=== PATIENT | female | born 1965 | race Caucasian/White ===

== ENCOUNTER 2017-01-23 13:21 | Observation (INO) ==
[2017-01-23] MEDS ORDERED: SALINE FLUSH 10ml SYRINGE IVF PRN (13:44)
[2017-01-23] MEDS ORDERED: ASPIRIN 81 MG CHEWABLE TABLET PO ONE (13:44)
--- NOTE | 2017-01-23 13:44 | Emergency Department Report ---
Chest Pain HPI - General Chief Complaint: Chest Pain Stated Complaint: chest pain Time Seen by Provider: 01/23/17 13:44 Source: patient Mode of arrival: ambulatory Limitations: no limitations - History of Present Illness HPI narrative: Patient is a 51-year-old female presents [facility] for evaluation of exertional dyspnea, shortness of air chest tightness. The symptoms have been waxing and waning with exertion for the past week, however today feet patient felt significantly worse and short of air while ambulating. Patient states she does not feel well although does not specifically have any nausea or diaphoresis at this time. Patient decided present today to the ER for evaluation MD complaint: chest pain Occurred At: home Onset (ago): day(s) Duration: intermittent Onset: during exertion Pain location: left chest Severity: moderate - Related Data Home Medications Medication Instructions Recorded Confirmed Pantoprazole Sodium 40 mg PO DAILY #0 05/15/13 01/23/17 Triamterene/Hctz 37.5/25 Tab 1 tab PO DAILY #0 05/15/13 01/23/17 [MAXZIDE-25 eqv] oxybutynin chloride 5 mg tablet 5 mg PO DAILY 30 Days #30 12/16/16 01/23/17 Azelastine 0.1% Nasal [place] 1 spray EA NOSTRIL BID 01/23/17 01/23/17 [Astelin 0.1% Nasal [place]] topiramate 50 mg tablet 100 mg PO DAILY 90 Days #180 tab 02/13/17 Previous Rx's Medication Instructions Recorded montelukast 10 mg tablet 10 mg PO DAILY #90 tab 12/12/16 duloxetine 30 mg capsule,delayed 90 mg PO DAILY #90 cap 12/19/16 release Aspirin *EC* [Ecotrin] 81 mg PO DAILY tablet 01/24/17 Nebivolol [Bystolic] 5 mg PO DAILY #30 tablet 01/24/17 Ultram (Tramadol) 50 mg tablet 50 mg PO Q6H PRN #30 tab 02/13/17 Zantac (Ranitidine) 150 mg tablet 150 mg PO BID 90 Days #180 tab 03/01/17 sucralfate 1 gram tablet 1 g PO QID 28 Days #112 tab 03/02/17 phentermine 37.5 mg tablet 37.5 mg PO DAILY #30 tab 03/03/17 Celebrex (Celecoxib) 200 mg capsule 200 mg PO BID #60 cap 03/08/17 colestipol 1 gram tablet 1 g PO BID #60 tab 03/08/17 metoclopramide 10 mg tablet 10 mg PO HS #90 tab 03/10/17 Allergies Allergy/AdvReac Type Severity Reaction Status Date / Time FLAQUITO Inhibitors AdvReac Unknown Verified 02/13/17 13:14 ethinyl estradiol AdvReac Unknown Verified 02/13/17 13:14 [From Ortho-[facility] (21)] norethindrone AdvReac Unknown Verified 02/13/17 13:14 [From Ortho-Novum (21)] sibutramine [From Meridia] AdvReac Unknown Verified 02/13/17 13:14 Review of Systems Constitutional: Denies: fever, chills, weakness ENT: Denies: throat pain, dental pain Cardiovascular: Reports: chest pain, dyspnea on exertion Respiratory: Denies: cough, dyspnea, wheezes Gastrointestinal: Denies: abdominal pain, nausea, vomiting Musculoskeletal: Denies: back pain, joint swelling Integumentary: Denies: alopecia Neurological: Denies: headache, weakness, numbness Psychiatric: Denies: anxiety, depression PFSH Patient Stated Medical History Migraine Yes Hypertension Yes Asthma Yes Sleep Apnea Yes: boardline Gastroesophageal Reflux Yes Disease Ulcer Yes Hx Urinary Tract Infection Yes: frequent UTI Osteoarthritis Yes Depression Yes Clinic Medical History (Last Reviewed 12/20/16 @ 09:17 by DESTIN Blevins) Rheumatoid arthritis (Acute Medical) GERD (gastroesophageal reflux disease) (Chronic Medical) Insomnia (Acute Medical) Depression (Chronic Medical) HTN (hypertension) (Chronic Medical) Environmental and seasonal allergies (Acute Medical) Obesity (Chronic Medical) Recommending gastric bypass surgery. This patient suffers from multiple medical conditions directly related to her morbid obesity. Her and her agree to gastric bypass options. She will continue phentermine to complete a 6 month weight loss program. Most weight loss surgical Center for require a monitored six-month weight loss program which she definitely has completed. Patient will follow-up with Yoselin Patino in 2mos. Sooner if needed. The appropriate weight loss centers were given to patient to contact for appointments. Multinodular goiter (Acute Medical) Hyperthyroidism (Acute Medical) Fibromyalgia (Acute Medical) Family History: Family History (Last Reviewed 06/20/17 @ 09:17 by DESTIN Blevins) Father Aneurysm Myocardial infarction Mother Alive and well - Social History Smoking status: Former smoker Substance use type: does not use Alcohol intake frequency: does not drink Physical Exam - Limitations Limitations: no limitations - General General appearance: alert, in no apparent distress - ENT ENT exam: Present: normal oropharynx, mucous membranes moist, TM's normal bilaterally - Neck Neck exam: Present: trachea midline - Chest Chest inspection: Present: symmetric chest wall rise. Absent: tenderness - Respiratory Respiratory exam: Present: normal lung sounds bilaterally. Absent: respiratory distress, wheezes, stridor - Cardiovascular Cardiovascular exam: Present: regular rate, normal rhythm, normal heart sounds - Abdominal Exam Abdominal exam: Present: soft. Absent: distention - Back Exam Back exam: Present: full ROM. Absent: tenderness, CVA tenderness (R), CVA tenderness (L), muscle spasm, paraspinal tenderness - Skin Skin exam: Present: warm, dry - Neurological Exam Neurological exam: Present: alert, oriented X3 - Psychiatric Psychiatric exam: Present: normal affect, normal mood Course Vital Signs Temperature 98.1 F 01/23/17 13:25 Pulse Rate 74 01/23/17 13:25 Respiratory Rate 24 01/23/17 13:25 Blood Pressure 165/99 H 01/23/17 13:25 Pulse Oximetry 96 01/23/17 13:25 Temperature 97.1 F 01/24/17 07:58 Pulse Rate 73 01/24/17 07:58 Respiratory Rate 16 01/24/17 07:58 Blood Pressure 137/85 01/24/17 07:58 Pulse Oximetry 97 01/24/17 07:58 Chest Pain - Differential Diagnosis Likely: fracture of rib, pneumothorax, stable angina, unstable angina pectoris, atypical chest pain, st elevation myocardial infarction, costochondritis, chest pain, biliary colic - Medical Records Data Attestation: I reviewed the patient's medical records. - Lab Data Attestation: I reviewed the patient's lab results. Result diagrams: 01/24/17 10:15 01/24/17 10:16 Lab Results 01/23/17 01/23/17 01/23/17 Range/Units 13:59 13:59 13:59 WBC 6.6 (4.5-11.0) T/MM3 RBC 4.92 (4.00-5.20) M/MM3 Hgb 14.8 (12-16) GM/DL Hct 46.3 H (36-46) % MCV 94.1 (80-100) UM3 MCH 30.1 (26-34) UUG MCHC 32.0 (31-37) GM/DL RDW Std Deviation 46.5 (36.9-50.2) FL Plt Count 239 (130-400) T/MM3 MPV 11.2 (9.4-12.4) UM3 Immature Gran % (Auto) 0.0 (0.0-0.5) % Neut % (Auto) 59.8 (33-66) % Lymph % (Auto) 29.9 (23-45) % [place] % (Auto) 6.8 (0-9.0) % Eos % (Auto) 2.9 (0-4) % Baso % (Auto) 0.6 (0-2) % Neut # 4.0 (1.8-7.7) T/MM3 Lymph # 2.0 (1-4.8) T/MM3 [place] # 0.5 (0-0.8) T/MM3 Eos # 0.2 (0-0.5) T/MM3 Baso # 0.0 (0-0.2) T/MM3 Abs Immat Gran (auto) 0.00 (0.00-0.03) T/MM3 D-Dimer < 150 (0-230) NG/ML Turbidity < 20 (0-20) Sodium 144 (134-144) MEQ/L Potassium 3.7 (3.6-5) MEQ/L Chloride 110 H (98-107) MEQ/L Carbon Dioxide 22 (22-30) MEQ/L Anion Gap 12 (5-15) MEQ/L BUN 16.0 (7-17) MG/DL Creatinine 1.0 (0.7-1.2) MG/DL GFR Calculation 58 BUN/Creatinine Ratio 16 (6-26) RATIO Glucose 96 (65-110) MG/DL Calculated Osmolality 278 (261-280) MOSM/KG Calcium 10.0 (8.4-10.2) MG/DL Magnesium (1.6-2.3) MG/DL Total Bilirubin 1.20 (0.20-1.30) MG/DL Icterus Index < 2 (0-7) AST 22 (14-36) U/L ALT 34 (9-52) U/L Alkaline Phosphatase 119 (38-126) U/L Troponin I < 0.012 (0-0.12) ng/ml B-Natriuretic Peptide 65.9 (0-175) pg/mL Total Protein 7.3 (6.3-8.2) G/DL Albumin 4.4 (3.5-5.0) G/DL Globulin 2.9 (2.4-3.6) G/DL Albumin/Globulin Ratio 1.5 (1.1-2.2) RATIO Triglycerides (35-135) MG/DL Cholesterol (132-199) MG/DL LDL Cholesterol, Calc (66-159) VLDL Cholesterol (0-28) MG/DL HDL Cholesterol (40-60) MG/DL Cholesterol/HDL Ratio (0-4.0) RATIO Specimen Hemolysis < 15 (0-25) 01/23/17 01/23/17 Range/Units 13:59 13:59 WBC (4.5-11.0) T/MM3 RBC (4.00-5.20) M/MM3 Hgb (12-16) GM/DL Hct (36-46) % MCV (80-100) UM3 MCH (26-34) UUG MCHC (31-37) GM/DL RDW Std Deviation (36.9-50.2) FL Plt Count (130-400) T/MM3 MPV (9.4-12.4) UM3 Immature Gran % (Auto) (0.0-0.5) % Neut % (Auto) (33-66) % Lymph % (Auto) (23-45) % [place] % (Auto) (0-9.0) % Eos % (Auto) (0-4) % Baso % (Auto) (0-2) % Neut # (1.8-7.7) T/MM3 Lymph # (1-4.8) T/MM3 [place] # (0-0.8) T/MM3 Eos # (0-0.5) T/MM3 Baso # (0-0.2) T/MM3 Abs Immat Gran (auto) (0.00-0.03) T/MM3 D-Dimer (0-230) NG/ML Turbidity (0-20) Sodium (134-144) MEQ/L Potassium (3.6-5) MEQ/L Chloride (98-107) MEQ/L Carbon Dioxide (22-30) MEQ/L Anion Gap (5-15) MEQ/L BUN (7-17) MG/DL Creatinine (0.7-1.2) MG/DL GFR Calculation BUN/Creatinine Ratio (6-26) RATIO Glucose (65-110) MG/DL Calculated Osmolality (261-280) MOSM/KG Calcium (8.4-10.2) MG/DL Magnesium 2.1 (1.6-2.3) MG/DL Total Bilirubin (0.20-1.30) MG/DL Icterus Index (0-7) AST (14-36) U/L ALT (9-52) U/L Alkaline Phosphatase (38-126) U/L Troponin I (0-0.12) ng/ml B-Natriuretic Peptide (0-175) pg/mL Total Protein (6.3-8.2) G/DL Albumin (3.5-5.0) G/DL Globulin (2.4-3.6) G/DL Albumin/Globulin Ratio (1.1-2.2) RATIO Triglycerides 113 (35-135) MG/DL Cholesterol 151 (132-199) MG/DL LDL Cholesterol, Calc 71.4 (66-159) VLDL Cholesterol 22.6 (0-28) MG/DL HDL Cholesterol 57 (40-60) MG/DL Cholesterol/HDL Ratio 2.6 (0-4.0) RATIO Specimen Hemolysis (0-25) - Radiology Data Attestation: I reviewed the patient's radiology results. Chest x-ray: No acute cardiopulmonary findings - EKG Data EKG #1 EKG attestation: Yes: I reviewed and interpreted this EKG. EKG shows normal: sinus rhythm Rate: normal Rhythm: NSR [place]/QRS: normal Interpretation: no acute changes Disposition Clinical Impression: Chest pain, rule out acute myocardial infarction Disposition: 02 To [facility] Condition: Stable Time of Disposition: 15:12 - Seen By: physician
[2017-01-23] MEDS: NITROGLYCERIN 0.4 MG SUBLINGUAL TABLET SL PRN ×2 (14:00→14:07)
--- NOTE | 2017-01-23 15:01 | XRay Report ---
Indication: chest discomfort, shortness of breath, nausea PROCEDURE: XR chest 1V: Encounter: Initial Comparison: CT chest, 07/29/2015 Findings: The lungs are clear, the heart is unenlarged, and there is no pleural fluid. No pulmonary vascular engorgement. Trachea midline. Visualized osseous element are intact and monitor leads overlie the chest. Impression: Negative for acute chest disease. .
--- NOTE | 2017-01-23 18:05 | Cardiology Consult Note ---
History of Present Illness Consult date: 01/23/17 <Shea Velázquez 01/23/17 18:04> Requesting physician: Maria Elena Molina <Shea Velázquez 01/23/17 18:04> Consult reason: chest pain <Shea Velázquez 01/23/17 18:04> Chief complaint: Chest Pain <Shea Velázquez 01/23/17 18:04> History of present illness: This is a 51-year-old morbidly obese female who presented to the ER today after CP that she states has been intermittent over the last 7-10 days. She states that it can last from a few minutes to a few hours. Describes as a "pressure" to her left mid chest, does not radiate. States that there are no exacerbating and/or relieving factors. States that area is tender to touch. Denies pain with inspiration. Denies any palpitations, diaphoresis, SOA. Also denies any nausea until today. States she developed nausea last night that was not improved this AM. She then went to work and felt more nauseated and weak and notified her PCP to make an appointment at which time the office notified her she should be evaluated in the ER. Once presenting to the ER it was noted that pt had a new RBBB and her chest pressure was relieved with SL nitro. Initial troponin was negative.Patient states only medical hx HTN, GERD, hyperthyroidism, depression and obesity for which she has been taking phentermine for qualifying weight loss program prior to weight loss surgery. States she has not taken medication in approximately 1 week. Denies any h/o CAD & that her lipid panels have always been WNL,states she takes colestipol for chronic diarrhea. Past h/o tobacco use. Patient states only family h/o CAD is her mother who is d/t CT. <Shea Velázquez 01/24/17 10:36> Review of Systems - Constitutional Constitutional: Present: fatigue, headache(s). Absent: chills <Shea Velázquez 01/23/17 18:24> - Cardiovascular Cardiovascular: Present: chest pain. Absent: palpitations, syncope, dyspnea on exertion, orthopnea <Shea Velázquez 01/23/17 18:24> - Respiratory Respiratory: Absent: cough, dyspnea, dyspnea on exertion, wheezing, pain on inspiration, chest congestion <Ecton,Shea 01/23/17 18:24> - Gastrointestinal Gastrointestinal: Present: nausea. Absent: abdominal pain, change in bowel habits, constipation, diarrhea, vomiting <Ecton,Shea 01/23/17 18:24> - Genitourinary Genitourinary: Absent: dysuria, flank pain <Ecton,Shea 01/23/17 18:24> - Musculoskeletal Musculoskeletal: Absent: joint swelling, stiffness <Ecton,Shea 01/23/17 18:24> - Integumentary/Breasts Integumentary: Absent: rash, swelling, wounds <Ecton,Shea 01/23/17 18:24> - Neurological Neurological: Absent: confusion, dizziness, radicular pain, weakness <Ecton, Shea 01/23/17 18:24> - Psychiatric Psychiatric: Absent: anxiety, panic attacks <Ecton,Shea 01/23/17 18:24> - Endocrine Endocrine: Absent: excessive sweating, palpitations <Ecton,Shea 01/23/17 18:24> - Hematologic/Lymphatic Hematologic/Lymphatic: Absent: easy bleeding, easy bruising, lymphadenopathy < Ecton,Shea 01/23/17 18:24> [facility] Patient Stated Medical History Migraine Yes Hypertension Yes Asthma Yes Sleep Apnea Yes: boardline Gastroesophageal Reflux Yes Disease Ulcer Yes Hx Urinary Tract Infection Yes: frequent UTI Osteoarthritis Yes Gonorrhea Yes Depression Yes Clinic Medical History (Last Updated 01/24/17 @ 16:01 by Leif Michelle MD) Environmental and seasonal allergies (Acute Medical) Fibromyalgia (Acute Medical) Hyperthyroidism (Acute Medical) Insomnia (Acute Medical) Multinodular goiter (Acute Medical) Rheumatoid arthritis (Acute Medical) Depression (Chronic Medical) GERD (gastroesophageal reflux disease) (Chronic Medical) HTN (hypertension) (Chronic Medical) Obesity (Chronic Medical) Recommending gastric bypass surgery. This patient suffers from multiple medical conditions directly related to her morbid obesity. Her and her agree to gastric bypass options. She will continue phentermine to complete a 6 month weight loss program. Most weight loss surgical Center for require a monitored six-month weight loss program which she definitely has completed. Patient will follow-up with Yoselin Patino in 2mos. Sooner if needed. The appropriate weight loss centers were given to patient to contact for appointments. <Leroy Caldwell - 01/26/17 12:35> Clinic Medical History (Last Updated 01/23/17 @ 15:11 by Efrain Gregory MD) Depression (Acute Medical) Continue current medications. Will increase duloxetine to 90 milligrams daily. Environmental and seasonal allergies (Acute Medical) Fibromyalgia (Acute Medical) GERD (gastroesophageal reflux disease) (Acute Medical) HTN (hypertension) (Acute Medical) Hyperthyroidism (Acute Medical) Insomnia (Acute Medical) Multinodular goiter (Acute Medical) Rheumatoid arthritis (Acute Medical) Obesity (Chronic Medical) Recommending gastric bypass surgery. This patient suffers from multiple medical conditions directly related to her morbid obesity. Her and her agree to gastric bypass options. She will continue phentermine to complete a 6 month weight loss program. Most weight loss surgical Center for require a monitored six-month weight loss program which she definitely has completed. Patient will follow-up with Yoselin Patino in 2mos. Sooner if needed. The appropriate weight loss centers were given to patient to contact for appointments. <OzzieonShea 01/23/17 18:24> Family History: Family History (Last Reviewed 12/20/16 @ 09:17 by DESTIN Blevins) Father Aneurysm Myocardial infarction Mother Alive and well <Leroy Caldwell - 01/26/17 12:35> Family History (Last Reviewed 12/20/16 @ 09:17 by DESTIN Blevins) Father Aneurysm Mother Myocardial infarction - <MelaniaShea R 01/23/17 18:24> - Social History Smoking status: Former smoker <EctonShea 01/23/17 18:04> Substance use type: does not use <EctonShea R 01/23/17 18:24> Alcohol intake: never <EctonShea 01/23/17 18:24> Alcohol intake frequency: does not drink <EctonShea R 01/23/17 18:24> Housing: house <Ecton,Shea 01/23/17 18:24> Household members: spouse <EctonShea 01/23/17 18:24> service: No <Ecton,Shea 01/23/17 18:24> Current occupational status: employed <EctonShea R - 01/23/17 18:24> Current occupational exposures/hazards: No <Shea Velázquez R - 01/23/17 18:24> Does patient use chewing tobacco?: No <Shea Velázquez R - 01/23/17 18:24> Current residence: Apartment/Private Home <Shea Velázquez R - 01/23/17 18:24> Medications Home Medications Medication Instructions Recorded Confirmed Type Pantoprazole Sodium 40 mg PO DAILY #0 05/15/13 01/23/17 History Triamterene/Hctz 37.5/25 Tab 1 tab PO DAILY #0 05/15/13 01/23/17 History [MAXZIDE-25 eqv] [id number] 1 - 2 tab PO Q6HR PRN 5 Days 12/16/16 History 50 mg-325 mg-40 mg tablet eszopiclone 1 mg tablet 1 mg PO HS 30 Days 12/16/16 01/23/17 History mometasone-formoterol HFA 200 1 puff INH DAILY 30 Days 12/16/16 01/23/17 History mcg-5 mcg/actuation aerosol inhaler oxybutynin chloride 5 mg tablet 5 mg PO DAILY 30 Days 12/16/16 01/23/17 History ranitidine 150 mg tablet 150 mg PO DAILY 90 Days 12/16/16 01/23/17 History topiramate 50 mg tablet 50 mg PO DAILY 90 Days 12/16/16 01/23/17 History Azelastine 0.1% Nasal [place] 1 spray EA NOSTRIL BID 01/23/17 01/23/17 History [Astelin 0.1% Nasal [place]] Colestipol [Colestid] 1 gm PO BID 01/23/17 01/23/17 History <Leroy Caldwell - 01/26/17 12:35> Allergies Allergy/AdvReac Type Severity Reaction Status Date / Time FLAQUITO Inhibitors AdvReac Unknown Verified 01/23/17 20:42 ethinyl estradiol AdvReac Unknown Verified 01/23/17 17:56 [From Ortho-Novum (21)] norethindrone AdvReac Unknown Verified 01/23/17 17:56 [From Ortho-Novum (21)] sibutramine [From Meridia] AdvReac Unknown Verified 01/23/17 17:56 <Leroy Caldwell - 01/26/17 12:35> Exam Vital signs: Temperature 97.1 F 01/24/17 07:58 Pulse Rate 73 01/24/17 07:58 Respiratory Rate 16 01/24/17 07:58 Blood Pressure 137/85 01/24/17 07:58 Pulse Oximetry 97 01/24/17 07:58 Oxygen Delivery Method Room Air <Leroy Caldwell - 01/26/17 12:35> Temperature 98.1 F 01/23/17 13:25 Pulse Rate 66 01/23/17 16:21 Respiratory Rate 20 01/23/17 16:21 Blood Pressure 151/63 H 01/23/17 16:21 Pulse Oximetry 98 01/23/17 16:21 Laboratory Results - last 24 hr 01/23/17 01/23/17 01/23/17 13:59 13:59 13:59 WBC 6.6 RBC 4.92 Hgb 14.8 Hct 46.3 H MCV 94.1 MCH 30.1 MCHC 32.0 RDW Std Deviation 46.5 Plt Count 239 MPV 11.2 Immature Gran % (Auto) 0.0 Neut % (Auto) 59.8 Lymph % (Auto) 29.9 [place] % (Auto) 6.8 Eos % (Auto) 2.9 Baso % (Auto) 0.6 Neut # 4.0 Lymph # 2.0 [place] # 0.5 Eos # 0.2 Baso # 0.0 Abs Immat Gran (auto) 0.00 D-Dimer < 150 Turbidity < 20 Sodium 144 Potassium 3.7 Chloride 110 H Carbon Dioxide 22 Anion Gap 12 BUN 16.0 Creatinine 1.0 GFR Calculation 58 BUN/Creatinine Ratio 16 Glucose 96 Calculated Osmolality 278 Calcium 10.0 Magnesium Total Bilirubin 1.20 Icterus Index < 2 AST 22 ALT 34 Alkaline Phosphatase 119 Troponin I < 0.012 B-Natriuretic Peptide 65.9 Total Protein 7.3 Albumin 4.4 Globulin 2.9 Albumin/Globulin Ratio 1.5 Specimen Hemolysis < 15 01/23/17 13:59 WBC RBC Hgb Hct MCV MCH MCHC RDW Std Deviation Plt Count MPV Immature Gran % (Auto) Neut % (Auto) Lymph % (Auto) [place] % (Auto) Eos % (Auto) Baso % (Auto) Neut # Lymph # [place] # Eos # Baso # Abs Immat Gran (auto) D-Dimer Turbidity Sodium Potassium Chloride Carbon Dioxide Anion Gap BUN Creatinine GFR Calculation BUN/Creatinine Ratio Glucose Calculated Osmolality Calcium Magnesium 2.1 Total Bilirubin Icterus Index AST ALT Alkaline Phosphatase Troponin I B-Natriuretic Peptide Total Protein Albumin Globulin Albumin/Globulin Ratio Specimen Hemolysis Date of Exam: 01/23/17 Ordering Provider: Efrain Gregory MD Type of Exam(s): XR chest 1V Reason for Exam(s): chest discomfort Indication: chest discomfort, shortness of breath, nausea PROCEDURE: XR chest 1V: Encounter: Initial Comparison: CT chest, 07/29/2015 Findings: The lungs are clear, the heart is unenlarged, and there is no pleural fluid. No pulmonary vascular engorgement. Trachea midline. Visualized osseous element are intact and monitor leads overlie the chest. Impression: Negative for acute chest disease. <Shea Velázquez 01/24/17 10:27> - Constitutional no acute distress, morbidly obese, cooperative <OzzieonShea 01/23/17 18:24 > - Routine HEENT Exam Head: Present: normocephalic <EctonShea 01/23/17 18:24> Eye: Present: EOMI <EctonShea 01/23/17 18:24> ENT: Present: mucous membranes moist <EctonShea 01/23/17 18:24> Nose: moist mucous membranes <EctonShea 01/23/17 18:24> - Routine Neck Exam Absent: JVD, carotid bruit, lymphadenopathy <OzzieonShea 01/23/17 18:24> - Routine Respiratory Exam Present: CTA bilaterally. Absent: dyspnea, wheezes, crackles <EctonShea 01/23/17 18:24> - Routine Cardiovascular Exam Present: RRR, no murmur. Absent: gallop, rubs, JVD <EctonShea 01/23/17 18:24> - Routine Abdominal Exam Present: soft, normoactive bowel sounds, non distended <EctonShea 18:24> - Routine Extremities Exam Present: edema, pulses intact <EctonShea 01/23/17 18:24> Comments: Trace edema to BLE. <Shea Velázquez 01/23/17 18:24> - Routine Back/Spine/Pelvis Exam Back/Spine: Present: full ROM <Shea Velázquez 01/23/17 18:24> - Routine Skin Exam Present: intact, dry, warm. Absent: wounds, rash <Shea Velázquez 01/23/17 18 :24> - Routine Neurological Exam Present: alert, oriented X3 <Shea Velázquez 01/23/17 18:24> - Routine Psychiatric Exam Present: normal affect, normal thought process, cooperative. Absent: agitated <Shea Velázquez 01/23/17 18:37> Results 01/24/17 10:15 01/24/17 10:16 <Leroy Caldwell 01/26/17 12:35> - Imaging and Cardiology EKG results: report reviewed <Shea Velázquez 01/23/17 18:24> - EKG Interpretation EKG: sinus rhythm (w/RBBB) <Shea Velázquez 01/24/17 10:04> Assessment and Plan (1) Hyperthyroidism Status: Acute (2) HTN (hypertension) Status: Chronic (3) Depression Status: Chronic (4) GERD (gastroesophageal reflux disease) Status: Chronic (5) Chest pain, rule out acute myocardial infarction Status: Resolved (6) Morbid obesity Status: Chronic <Leroy Caldwell 01/26/17 12:35> (1) Chest pain, rule out acute myocardial infarction Status: Acute reviewed current EKG, showed NSR with new RBBB. First troponin negative, will follow troponin trend. Current lab unremarkable order lipid panel , TSH & mag level. Will order ECHO. Will monitor overnight on tele and repeat EKG & lab in AM. (2) HTN (hypertension) Status: Acute Slightly elevated, patient states not norm. Will con't to monitor on home dose Maxzide.May need to add BB/CCB, pt allergy to ACEI. (3) Morbid obesity Status: Acute Patient on weight loss program with phentermine. States no dose x1week. F/u with PCP for con't. wt loss management. (4) Hyperthyroidism Status: Acute Check TSH.PCP manages. (5) Depression Problem details: Continue current medications. Will increase duloxetine to 90 milligrams daily. Status: Acute Attending managing and making changes to medications. (6) GERD (gastroesophageal reflux disease) Status: Acute Pantoprazole 40mg daily. PCP manages. <Shea Velázquez - 01/24/17 10:44> - Attestation Attestation Narrative: 01/26/17 12:35 Recommendation After examining the patient I agree with the above assessment. I am involved in the formulation of the patient's plan of care. <Leroy Caldwell - 01/26/17 12:35> Hospital Course Summary Disclaimer: The visit summary below is not to be considered part of the above Progress Note. <Leroy Caldwell - 01/26/17 12:35> The visit summary below is not to be considered part of the above Progress Note. <Shea Velázquez - 01/23/17 18:04> Addendum entered and electronically signed by Shea Velázquez APRN 01/24/17 11: 16: Please note in HPI that patient initially seen in ER by attending, who consulted cardiology after patient had CP relieved by SL nitro & noted new RBBB on EKG. Thank you for your consult .
[2017-01-23 18:08] VITALS: BMI 61.7
[2017-01-23] MEDS ORDERED: TETANUS, DIPHTHERIA, a PERTUSSIS (Tdap) 0.5ml INJECTION IM ONE (20:26)
--- NOTE | 2017-01-23 20:34 | History & Physical Report ---
History of Present Illness Date: 01/23/17 Chief complaint: chest pain HPI: Patient was seen at 7:30 PM Informant: Patient, patient's , patient's chart. Chief complaint: chest pain History of present illness: The patient is a 51-year-old white female who presents with complaints that she felt sick yesterday and has had pain in her chest for the last 7-10 days. Today it felt like a cannonball in my gut associated with nausea. She also reports she has had pain in her chest for the last 7-10 days that feels more like a pressure like something is sitting on her chest. She called her physician's office this morning when the pain started to go between her shoulder blades and radiated down her left arm and she was advised to present to the emergency department because of the risk of a cardiac event patient was at work at the time (she works at [employer] across the street). He told her boss that she needed to go to the emergency department, she reports she got dizzy and short of breath on the way to the car and when walking from the emergency department into the ED. The shortness of breath has resolved now. She says it was different from her usual asthma. In addition she reports she has felt hot and cold for the last 10 days sort of allergic menopause. She is not sure if she 's had a fever but she does feel like she's had chills and sweats. Her weight has not changed recently.She has been on phentermine for the last 6 months and has had fluctuation of her weight by 5-10 pounds. She does have a history of gastroesophageal reflux disease/reflux and reports that she has woken up in the middle of the night with "emesis" in the back of her throat causing her to cough and gag. This is unusual for her. She was admitted to the medical floor for observation. Review of Systems - Constitutional Constitutional: Present: fatigue, headache(s). Absent: chills - Cardiovascular Cardiovascular: Present: chest pain. Absent: palpitations, syncope, dyspnea on exertion, orthopnea - Respiratory Respiratory: Absent: cough, dyspnea, dyspnea on exertion, wheezing, pain on inspiration, chest congestion - Gastrointestinal Gastrointestinal: Present: nausea. Absent: abdominal pain, change in bowel habits, constipation, diarrhea, vomiting - Genitourinary Genitourinary: Absent: dysuria, flank pain - Musculoskeletal Musculoskeletal: Absent: joint swelling, stiffness - Integumentary/Breasts Integumentary: Absent: rash, swelling, wounds - Neurological Neurological: Absent: confusion, dizziness, radicular pain, weakness - Psychiatric Psychiatric: Absent: anxiety, panic attacks - Endocrine Endocrine: Absent: excessive sweating, palpitations - Hematologic/Lymphatic Hematologic/Lymphatic: Absent: easy bleeding, easy bruising, lymphadenopathy - Allergic/Immunologic Allergic/Immunologic: Review of systems: As per history of present illness HEENT: No headaches, occasional sinus problems, no sinus drainage, no visual changes, no blurred vision,, no sore throat however she reports that every day when she goes to work she loses her voice within few minutes of being there but this resolves when she goes home., Lungs: As per history of present illness she has had shortness of breath, and dyspnea on exertion, no cough, no sputum production. CV:,no palpitations, no swelling of the extremities, she denies syncope GI: Occasional nausea and diarrhea, no constipation,no blood in the stool, no dark-colored stools, no bright red blood per rectum. Last colonoscopy was about 5 years ago. : No dysuria, no hematuria, no flank pain. Musculoskeletal: No numbness or tingling in the arms or legs, no weakness. Skin: No skin rash PFSH Past medical history/surgical history: Asthma Depression treated with duloxetine Environmental and seasonal allergies Fibromyalgia Hypothyroidism Multinodular goiter Arthritis Obesity Thyroid surgery 20 years ago one fallopian tube removed at the age of 14 secondary to gonorrhea they thought she had appendicitis Carpal tunnel repair 2015 Cholecystectomy 2016 Family History: Family History (Last Reviewed 12/20/16 @ 09:17 by DESTIN Blevins) Father age 77 alive and well Brain Aneurysm Mother of a myocardial infarction at the age of 67 There is a family history of COPD Immunizations: She tries to get a yearly flu vaccine Not sure if she's had a Tdap or pneumococcal vaccine - Social History Smoking status: Former smoker packs per day: 34 Substance use type: former substance user Alcohol intake frequency: holidays/special occasions only Last drink: unknown Household members: spouse Current occupational status: employed Current occupation: clinical administrative coordinator Does patient use chewing tobacco?: No Current residence: Apartment/Private Home Medications Home Medications Medication Instructions Recorded Confirmed Type Pantoprazole Sodium 40 mg PO DAILY #0 05/15/13 01/23/17 History Triamterene/Hctz 37.5/25 Tab 1 tab PO DAILY #0 05/15/13 01/23/17 History [MAXZIDE-25 eqv] [id number] 1 - 2 tab PO Q6HR PRN 5 Days 12/16/16 History 50 mg-325 mg-40 mg tablet eszopiclone 1 mg tablet 1 mg PO HS 30 Days 12/16/16 01/23/17 History mometasone-formoterol HFA 200 1 puff INH DAILY 30 Days 12/16/16 01/23/17 History mcg-5 mcg/actuation aerosol inhaler oxybutynin chloride 5 mg tablet 5 mg PO DAILY 30 Days 12/16/16 01/23/17 History ranitidine 150 mg tablet 150 mg PO DAILY 90 Days 12/16/16 01/23/17 History topiramate 50 mg tablet 50 mg PO DAILY 90 Days 12/16/16 01/23/17 History Azelastine 0.1% Nasal [place] 1 spray EA NOSTRIL BID 01/23/17 01/23/17 History [Astelin 0.1% Nasal [place]] Colestipol [Colestid] 1 gm PO BID 01/23/17 01/23/17 History Allergies Allergy/AdvReac Type Severity Reaction Status Date / Time FLAQUITO Inhibitors AdvReac Unknown Verified 01/23/17 20:42 ethinyl estradiol AdvReac Unknown Verified 01/23/17 17:56 [From [facility] (21)] norethindrone AdvReac Unknown Verified 01/23/17 17:56 [From [facility] (21)] sibutramine [From [facility]idia] AdvReac Unknown Verified 01/23/17 17:56 Exam Vital Signs: Temperature 98.0 F 01/23/17 18:00 Pulse Rate 69 01/23/17 18:00 Respiratory Rate 18 01/23/17 18:00 Blood Pressure 166/90 H 01/23/17 18:00 Pulse Oximetry 94 01/23/17 18:00 Oxygen Delivery Method Room Air Height: 5 ft 2 in Weight: 337 lb 8.443 oz Body Mass Index: 61.7 - Additional findings Additional findings: Physical exam: In general the patient is an obese white female who is alert and oriented, cooperative with exam in no respiratory distress. HEENT: Head is atraumatic and normocephalic. . Extraocular movements are intact. There is no conjunctival petechiae or scleral icterus. No sinus tenderness. Oral mucosa is moist and pink with out exudate or lesions. Neck is supple without adenopathy. Lungs: Clear to auscultation, no wheezes, no rhonchi, no crackles. CV: Regular rate and rhythm without murmur Abdomen: Morbidly obese, Bowel sounds are present. There is no guarding, no rebound, no hepatosplenomegaly. Extremities: Has no clubbing,no cyanosis, no edema. Musculoskeletal: Moves all 4 extremities without difficulty Skin: Is warm and dry without evidence of rash or ecchymoses Results - Labs CBC & Chem 7: 01/23/17 13:59 01/23/17 13:59 - Impressions Her initial EKG shows sinus rhythm with heart left axis deviation and an incomplete right bundle branch block, formal report pending - Imaging and Cardiology Chest x-ray Additional comments: Findings: The lungs are clear, the heart is unenlarged, and there is no pleural fluid. No pulmonary vascular engorgement. Trachea midline. Visualized osseous element are intact and monitor leads overlie the chest. Impression: Negative for acute chest disease. Assessment and Plan Assessment and Plan: Assessment: Chest pain, rule out acute myocardial infarction Hypertension morbid obesity Asthma Gastroesophageal reflux disease Hypothyroidism secondary to thyroidectomy it does not appear she is on thyroid meds from the home med list Depression Immunization status Plan: Consult Dr. Chowdary, discussed with him greatly appreciate his help, initial troponins are negative. Lipid panel and TSH and mag level are pending Echocardiogram result is pending Continue telemetry repeat EKG in the morning Continue current meds We'll give a Tdap Tonight She would also benefit from a pneumococcal vaccine 13 and 23 Sepsis Assessment - Evaluation Sepsis screening result: No Definite Risk Hospital Course Summary Disclaimer: The visit summary below is not to be considered part of the above Progress Note. Assessment: Chest pain, rule out acute myocardial infarction Hypertension morbid obesity Asthma Gastroesophageal reflux disease Hypothyroidism secondary to thyroidectomy it does not appear she is on thyroid meds from the home med list Depression Immunization status Plan: Consult Dr. Chowdary, discussed with him greatly appreciate his help, initial troponins are negative. Lipid panel and TSH and mag level are pending Echocardiogram result is pending Continue telemetry repeat EKG in the morning Continue current meds We'll give a Tdap Tonight She would also benefit from a pneumococcal vaccine 13 and 23
[2017-01-23] MEDS: COLESTIPOL 1 G TABLET PO SCH (21:03)
[2017-01-23] MEDS: AZELASTINE 0.1% NASAL SPRAY EA NOSTRIL SCH (21:12)
[2017-01-24 07:58] VITALS: BP 137/85; PULSE 73; RESP 16; TEMP 97.1; O2SAT 97
[2017-01-24] MEDS: COLESTIPOL 1 G TABLET PO SCH (08:11)
[2017-01-24] MEDS ORDERED: ACETAMINOPHEN 500 MG TABLET PO PRN (08:14)
--- NOTE | 2017-01-24 08:58 | Echocardiogram ---
DATE OF PROCEDURE January 23, 2017 This is a two-dimensional echo with spectral Doppler, color-flow and M-mode. It was obtained in a patient with chest pain. Left atrial dimension is normal. Left ventricle end-diastolic dimension is at the upper limits of normal. Left ventricle wall thickness is normal. LV systolic function is normal with ejection fraction of about 61%. Right atrium is normal. Right ventricle is normal. Aortic root dimension is normal. Mitral valve is morphologically normal with trace of mitral regurgitation. Aortic valve appears to be unremarkable with no stenosis or insufficiency. Tricuspid valve shows trace of tricuspid regurgitation with estimated pulmonary artery systolic pressure of 16. Pulmonary valve shows no pulmonary insufficiency. There is no pericardial effusion. IMPRESSION 1. Normal LV systolic function with ejection fraction of 61%. 2. Trace of mitral regurgitation. 3. Trace of tricuspid regurgitation with estimated pulmonary artery systolic pressure of 16. MTDD
[2017-01-24] MEDS ORDERED: TRIAMTERENE/HCTZ 37.5 MG-25 MG TABLET PO SCH (09:00)
[2017-01-24] MEDS ORDERED: PANTOPRAZOLE 40 MG TABLET PO SCH (09:00)
[2017-01-24] MEDS ORDERED: ASPIRIN 81 MG CHEWABLE TABLET PO SCH (09:00)
[2017-01-24] MEDS ORDERED: ASPIRIN *EC* 81 MG TABLET PO SCH (09:00)
[2017-01-24] MEDS: AZELASTINE 0.1% NASAL SPRAY EA NOSTRIL SCH (09:01)
--- NOTE | 2017-01-24 10:48 | Cardiology Progress Note ---
Subjective Principal diagnosis: Chest Pain <Shea Velázquez 01/24/17 10:54> Interval history: CC: Chest Pain Pt laying bed. Denies any CP/pressure, palpitations, SOA, N/V and/or diaphoresis. States she has done ok over night. Eating and drinking well. <Shea Velázquez - 01/24/17 10:54> Exam Vital signs: Temperature 97.1 F 01/24/17 07:58 Pulse Rate 73 01/24/17 07:58 Respiratory Rate 16 01/24/17 07:58 Blood Pressure 137/85 01/24/17 07:58 Pulse Oximetry 97 01/24/17 07:58 Oxygen Delivery Method Room Air <Leroy Caldwell - 01/26/17 12:49> Temperature 97.1 F 01/24/17 07:58 Pulse Rate 73 01/24/17 07:58 Respiratory Rate 16 01/24/17 07:58 Blood Pressure 137/85 01/24/17 07:58 Pulse Oximetry 97 01/24/17 07:58 Oxygen Delivery Method Room Air 01/24/17 10:15 Date of Exam: 01/23/17 Type of Exam(s): US echo doppler complete DATE OF PROCEDURE January 23, 2017 This is a two-dimensional echo with spectral Doppler, color-flow and M-mode. It was obtained in a patient with chest pain. Left atrial dimension is normal. Left ventricle end-diastolic dimension is at the upper limits of normal. Left ventricle wall thickness is normal. LV systolic function is normal with ejection fraction of about 61%. Right atrium is normal. Right ventricle is normal. Aortic root dimension is normal. Mitral valve is morphologically normal with trace of mitral regurgitation. Aortic valve appears to be unremarkable with no stenosis or insufficiency. Tricuspid valve shows trace of tricuspid regurgitation with estimated pulmonary artery systolic pressure of 16. Pulmonary valve shows no pulmonary insufficiency. There is no pericardial effusion. IMPRESSION 1. Normal LV systolic function with ejection fraction of 61%. 2. Trace of mitral regurgitation. 3. Trace of tricuspid regurgitation with estimated pulmonary artery systolic pressure of 16. <Shea Velázquez 01/24/17 10:54> - Constitutional no acute distress, morbidly obese, cooperative <Shea Velázquez 01/24/17 10:54 > - Routine HEENT Exam Head: Present: normocephalic <Shea Velázquez /25/17 10:54> Eye: Present: EOMI <EctonShea 01/24/17 10:54> ENT: Present: mucous membranes moist <Shea Velázquez 01/24/17 10:54> - Routine Cardiovascular Exam Present: RRR. Absent: murmur, gallop, rubs, JVD <EctShea galarza 01/24/17 10: 54> - Routine Extremities Exam Present: edema, pulses intact <EctonShea 01/24/17 10:54> Comments: Trace edema BLE. <EctonShea 01/24/17 10:54> - Routine Back/Spine/Pelvis Exam Back/Spine: Present: full ROM <OzzieonShea 01/24/17 10:54> - Routine Skin Exam Present: intact, dry, warm. Absent: erythema, wounds, rash <EctonShea 01/24/17 10:54> - Routine Neurological Exam Present: alert, oriented X3 <Shea Velázquez 01/24/17 10:54> - Routine Psychiatric Exam Present: normal affect, normal thought process, cooperative <Shea Velázquze 01/24/17 10:54> Progress Note-A&P (1) Hyperthyroidism Status: Acute (2) HTN (hypertension) Status: Chronic (3) Depression Status: Chronic (4) GERD (gastroesophageal reflux disease) Status: Chronic (5) Chest pain, rule out acute myocardial infarction Status: Resolved (6) Morbid obesity Status: Chronic <Leory Caldwell - 01/26/17 12:49> (1) Chest pain, rule out acute myocardial infarction Status: Acute Assessment and plan: Troponin x2 negative, 3rd was missed. Reordered for this AM. EKG this AM reviewed by , no ischemic changes. ECHO unremarkable, EF 61%. Add ASA EC 81mg daily. Have pt f/u outpt in 1-2 weeks, possible stress test. (2) HTN (hypertension) Status: Acute Assessment and plan: BP remains elevated. Add bystolic 5mg daily. (3) Morbid obesity Status: Acute Assessment and plan: F/u with PCP. (4) Hyperthyroidism Status: Acute Assessment and plan: TSH pending. F/u with PCP. (5) Depression Problem details: Continue current medications. Will increase duloxetine to 90 milligrams daily. Status: Acute Assessment and plan: Meds increased per attending. F/u per PCP. (6) GERD (gastroesophageal reflux disease) Status: Acute Assessment and plan: Con't current PPI. <Shea Velázquez 01/24/17 10:55> - Time Spent With Patient Total time spent is greater than 50% in coordination of care (as documented) at patient's floor/unit and/or counseling patient: <PauletteLeroy 01/26/17 12:49> Total time spent is greater than 50% in coordination of care (as documented) at patient's floor/unit and/or counseling patient: <MelaniaShea Nicolas 01/24/17 10:54> 25 - 35 minutes <MelaniaShea 01/24/17 11:14> - Attestation Attestation Narrative: Recommendation After examining the patient I agree with the above assessment. I am involved in the formulation of the patient's plan of care. <WhitmarshallLeroy 01/26/17 12:35> Sepsis Assessment - Evaluation Sepsis screening result: No Definite Risk <Shea Velázquez 01/24/17 10:54> Hospital Course Summary Disclaimer: The visit summary below is not to be considered part of the above Progress Note. <WhitmarshallLeroy 01/26/17 12:49> The visit summary below is not to be considered part of the above Progress Note. <MelaniaShea 01/24/17 10:54> EKG interpretations - EKG EKG results cardiology: sinus rhythm <MelaniaShea Nicolas 01/24/17 11:14> - Dysrhythmias Sinus rhythms and dysrhythmias: sinus rhythm (68 with left anterior fasicular block) <MelaniaShea Nicolas 01/24/17 11:14>
--- NOTE | 2017-01-24 12:44 | Discharge Instructions ---
Discharge Plan - Med Rec/Dispo Referrals/Follow Up: Gonzalez Coelho MD [Physician] - Leroy Caldwell MD [Physician] - 2 Weeks Yoselin Patino APRN [Family Provider] - 1 Week Additional Instructions: Please follow up with Yoselin Patino APRN regarding depression. Recommendations: -wear CPAP each night -limit naps to 30 minutes -get more sun exposure -start water exercise classes, as planned Prescriptions: New Aspirin *EC* [Ecotrin] 81 mg PO DAILY tablet Nebivolol [Bystolic] 5 mg PO DAILY #30 tablet Continue Pantoprazole Sodium 40 mg PO DAILY #0 Azelastine 0.1% Nasal [place] [Astelin 0.1% Nasal [place]] 1 spray EA NOSTRIL BID Triamterene/Hctz 37.5/25 Tab [MAXZIDE-25 eqv] 1 tab PO DAILY #0 Colestipol [Colestid] 1 gm PO BID - Disposition 01 Discharged Home, Self-Care
--- NOTE | 2017-01-24 12:51 | Discharge Summary ---
<Farzana Patel - Last Filed: 01/24/17 12:46> Discharge Information Date of admission: 01/23/17 16:52 Attending Physician: Maria Elena Molina MD Primary care physician: Yoselin Patino APRN Consults: 01/23/17 18:19 Dietary Consult [CONS] Routine Comment: Reason For Exam: - Discharge Diagnosis (1) Depression Status: Chronic (2) Chest pain, rule out acute myocardial infarction Status: Resolved - Laboratory Labs: 01/24/17 10:15 01/24/17 10:16 - Radiology Radiology: PROCEDURE: XR chest 1V: Impression: Negative for acute chest disease. History of Present Illness HPI: Patient was seen at 7:30 PM Informant: Patient, patient's , patient's chart. Chief complaint: chest pain History of present illness: The patient is a 51-year-old white female who presents with complaints that she felt sick yesterday and has had pain in her chest for the last 7-10 days. Today it felt like a cannonball in my gut associated with nausea. She also reports she has had pain in her chest for the last 7-10 days that feels more like a pressure like something is sitting on her chest. She called her physician's office this morning when the pain started to go between her shoulder blades and radiated down her left arm and she was advised to present to the emergency department because of the risk of a cardiac event patient was at work at the time (she works at [employer] across the street). He told her boss that she needed to go to the emergency department, she reports she got dizzy and short of breath on the way to the car and when walking from the emergency department into the ED. The shortness of breath has resolved now. She says it was different from her usual asthma. In addition she reports she has felt hot and cold for the last 10 days sort of allergic menopause. She is not sure if she 's had a fever but she does feel like she's had chills and sweats. Her weight has not changed recently.She has been on phentermine for the last 6 months and has had fluctuation of her weight by 5-10 pounds. She does have a history of gastroesophageal reflux disease/reflux and reports that she has woken up in the middle of the night with "emesis" in the back of her throat causing her to cough and gag. This is unusual for her. She was admitted to the medical floor for observation. Objective Vital signs: Temperature 97.1 F 01/24/17 07:58 Pulse Rate 73 01/24/17 07:58 Respiratory Rate 16 01/24/17 07:58 Blood Pressure 137/85 01/24/17 07:58 Pulse Oximetry 97 01/24/17 07:58 Oxygen Delivery Method Room Air Weight: 152.6 kg - Constitutional Present: well nourished, well developed, obese - Routine HEENT Exam ENT: Present: mucous membranes moist, oropharynx clear - Routine Respiratory Exam Present: CTA bilaterally - Routine Cardiovascular Exam Present: S1, S2 - Routine Abdominal Exam Present: soft - Routine Extremities Exam Present: pulses intact - Routine Skin Exam Present: intact, dry - Routine Neurological Exam Present: alert, oriented X3 - Routine Psychiatric Exam Absent: normal affect (flat and depressed) Hospital Course Domenica was admitted to the hospitalist service for chest pain. Cardiology was consulted. Troponins were negative 3. EKG and echocardiogram were unremarkable. She had elevations in blood pressure and Dr. Caldwell and started Bystolic as well as aspirin. Lipid panel was unremarkable. She was felt safe for discharge by 01/24/17, but would recommend follow-up with primary care provider for possible worsening depression. Recommend ongoing lifestyle changes including uses CPAP at night, improved sleep hygiene, exercise and sun exposure. Follow-up with Yoselin Patino in [address] Caldwell in 2 weeks. Patient and verbalized an understanding of the discharge plans and new medications. This is a general summary of the patient's hospital course. For more details refer to the complete medical record. Discharge Plan - Med Rec/Dispo Referrals/Follow Up: Leroy Caldwell MD [Physician] - 2 Weeks (APPOINTMENT ON 02/07 AT 2PM [phone].) Yoselin Patino APRN [Family Provider] - 1 Week (APPOITMENT ON 02/01 AT 2PM.) Gonzalez Coelho MD [Physician] - Chloe Instructions: Chest Pain (GEN) Additional Instructions: Please follow up with Yoselin Patino APRN regarding depression. Recommendations: -wear CPAP each night -limit naps to 30 minutes -get more sun exposure -start water exercise classes, as planned Prescriptions: New Aspirin *EC* [Ecotrin] 81 mg PO DAILY tablet Nebivolol [Bystolic] 5 mg PO DAILY #30 tablet Continue Pantoprazole Sodium 40 mg PO DAILY #0 Azelastine 0.1% Nasal [place] [Astelin 0.1% Nasal [place]] 1 spray EA NOSTRIL BID Triamterene/Hctz 37.5/25 Tab [MAXZIDE-25 eqv] 1 tab PO DAILY #0 Colestipol [Colestid] 1 gm PO BID - Disposition 01 Discharged Home, Self-Care <Leif Michelle - Last Filed: 01/24/17 16:01> Discharge Information Date of admission: 01/23/17 16:52 Attending Physician: Maria Elena Molina MD Primary care physician: Yoselin Patino APRN Consults: 01/23/17 18:19 Dietary Consult [CONS] Routine Comment: Reason For Exam: - Discharge Diagnosis (1) Chest pain, rule out acute myocardial infarction Status: Resolved (2) GERD (gastroesophageal reflux disease) Qualifiers: Esophagitis presence: without esophagitis Qualified Code(s): K21.9 - Gastro -esophageal reflux disease without esophagitis Status: Chronic (3) HTN (hypertension) Qualifiers: Hypertension type: essential hypertension Qualified Code(s): I10 - Essential (primary) hypertension Status: Chronic (4) Depression Qualifiers: Depression Type: unspecified Qualified Code(s): F32.9 - Major depressive disorder, single episode, unspecified Status: Chronic (5) Morbid obesity Status: Chronic - Laboratory Labs: 01/24/17 10:15 01/24/17 10:16 Objective Vital signs: Temperature 97.1 F 01/24/17 07:58 Pulse Rate 73 01/24/17 07:58 Respiratory Rate 16 01/24/17 07:58 Blood Pressure 137/85 01/24/17 07:58 Pulse Oximetry 97 01/24/17 07:58 Oxygen Delivery Method Room Air Hospital Course This is a general summary of the patient's hospital course. For more details refer to the complete medical record. Discharge Plan - Med Rec/Dispo - Attestation Attestation Narrative: 01/24/17 15:57 I have independently interviewed and examined pt. Chart reviewed. Case discussed with Dr Caldwell's group and my NAVIGATION TEACHER. Care plan developed with my supervision; agree with above. Doing better today except stiff and tired from the hospital bed. No chest pressure or pain. Breathing well. Eating well. No f/c. CV: regular Lungs: clear, no distress on RA AB: soft nt/nd +BS MSE: awake alert appropriate Plan: Medically stable for discharge to home. Initiate medications as per cardiology. Cardiac f/u in 2 weeks with stress testing. Discussed with pt and her that while we did not see evidence of MO at this time, it does not mean there is not heart tissue at risk. See orders for complete details of discharge.
== END 2017-01-24 14:10 | disposition home or self-care (01) ==
LOC: ED 13:21 → MED 13:21
PROVIDERS: ADMIT Internal Medicine Infectious Disease; ATTEND Internal Medicine Infectious Disease